=== PATIENT | female | born 1980 | race Caucasian/White ===

== ENCOUNTER 2017-01-30 11:39 | Emergency (ER) | payer OTHER ==
[2017-01-30 11:49] VITALS: BP 167/103; TEMP 98.1; BMI 37.4
[2017-01-30] MEDS ORDERED: SOLU-MEDROL 125 MG IM STA (12:14)
[2017-01-30] MEDS ORDERED: ROCEPHIN IM STA (12:14)
[2017-01-30] MEDS ORDERED: LIDOCAINE 1 % AMP 5 ML (SUTURES) IM STA (12:14)
--- NOTE | 2017-01-30 12:22 | ED.PDOC ---
General ED Provider: Dr. SHRAVAN ASH JR Chief Complaint: Bite Stated Complaint: Found tick attatched to rt back 3 days ago. Golf ball sized area of redness noted with dark center. Also c/o poison oak/ayesha "everywhere". Onset 2-3 days ago after took her dog outside to [place]. Has taken benadryl, calamine, et ibuprofen. Went to clinic. Would see pt at 1 pm, but pt states was too itchy to wait. [ End ]3 days 98.1 99 20 92% 167/103 02/09 Time Seen by Physician: 12:14 Mode of Arrival: Walk-In Information Source: Patient Exam Limitations: No limitations Primary Care Provider: DANIELLE COVARRUBIAS Nursing and Triage Documentation Reviewed and Agree: No Review of Systems - Review Of Systems Constitutional: Reports: Malaise Eyes: Reports: No symptoms Ears, Nose, Mouth, Throat: Reports: No symptoms Respiratory: Reports: No symptoms Cardiac: Reports: No symptoms GI: Reports: No symptoms : Reports: No symptoms Musculoskeletal: Reports: No symptoms Skin: Reports: Lesions, Lumps (right flank with 1cm edema erythema and 4mmsuperficial lac(consistent with avulsion from tick removal) left shoulde lesion healing multiple excotiated sites consistent with toxicodendron) Neurological: Reports: Anxiety, Other (itching unable to sleep) Endocrine: Reports: No symptoms Hematologic/Lymphatic: Reports: No symptoms All Other Systems: Other Past Medical History - Past Medical History Previously Healthy: Yes Endocrine: Reports: None Cardiovascular: Reports: None Respiratory: Reports: None Hematological: Reports: None Gastrointestinal: Reports: None Genitourinary: Reports: None Neuro/Psych: Reports: Seizure, Other (vertigo) Musculoskeletal: Reports: None Cancer: Reports: None Last Menstrual Period: 01/17 - Surgical History General Surgical History: Reports: Orthopedic (RIGHT colLar bone) - Family History Family History: Reports: Unknown - Social History Smoking Status: Current every day smoker, Light tobacco smoker Hx Substance Use: No Alcohol Screening: Occasionally Physical Exam - Physical Exam Appearance: Well-appearing, Obese Pain Distress: Moderate Eyes: HONG, EOMI, Conjunctiva clear ENT: Ears normal, Nose normal, Oropharynx normal Neck: Supple Respiratory: Airway patent, Breath sounds clear, Breath sounds equal, Respirations nonlabored Musculoskeletal: Normal strength, ROM intact, No edema, No calf tenderness Skin: Warm, Dry (note lesions) Neurological: Sensation intact, Motor intact, Reflexes intact, Cranial nerves intact, Alert, Oriented Psychiatric: Affect appropriate, Mood appropriate Critical Care Note - Critical Care Note Total Time (mins): 0 Course - Course Orders, Labs, Meds: Orders Category Date Time Status Ceftriaxone Sodium [Rocephin] MEDS 01/30/17 12:14 Discontinued 1 gm IM ONCE STA Lidocaine HCl/Pf [Lidocaine 1 % Amp 5 ml (Sutures)] MEDS 01/30/17 12:14 Discontinued 2.1 ml IM ONCE STA Methylprednisolone Sod Succ/Pf [Solu-Medrol 125 mg] MEDS 01/30/17 12:14 Discontinued 125 mg IM ONCE STA Medications Discontinued Medications Generic Name Dose Route Start Last Admin Trade Name Freq PRN Reason Stop Dose Admin Ceftriaxone Sodium 1 gm 01/30/17 12:14 01/30/17 12:30 Rocephin IM 01/30/17 12:15 1 gm ONCE STA Administration Lidocaine HCl 2.1 ml 01/30/17 12:14 01/30/17 12:30 Lidocaine 1 % Amp 5 Ml (Sutures) IM 01/30/17 12:15 2.1 ml ONCE STA Administration Methylprednisolone Sodium Succinate 125 mg 01/30/17 12:14 01/30/17 12:30 Solu-Medrol 125 Mg IM 01/30/17 12:15 125 mg ONCE STA Administration Vital Signs: Temp Pulse Resp BP Pulse Ox 01/30/17 11:41 98.1 F 99 H 20 167/103 H 92 L Departure - Departure Time of Disposition: 12:38 Disposition: HOME SELF-CARE Discharge Problem: Rhus dermatitis, Tick bite of back Instructions: Tick Bite (ED), Cold Compress or Soak (ED), Poison Ayesha (ED) Condition: Good Pt referred to PMD for follow-up: Yes Additional Instructions: continue Benadryl for itching and topical measures if helpful(may use other antihistamines claritin and yousif do not cause as much sedation as Benadryl solumedrol given if rash comes back may begin medrol dosepack [id number] one week PMD return if fever over 101.0 if rash spreading antibiotic for infection- doxycycline twice a day- may cause sun poisoning Prescriptions: Loratadine [Claritin] 10 mg PO DAILY PRN #30 tablet PRN Reason: Allergy Symptoms Methylprednisolone [Medrol Dosepak] 4 mg PO DIRECTED #1 pkg Allergies/Adverse Reactions: Allergies No Known Allergies Allergy (Verified 01/30/17 11:49) Home Medications: Ambulatory Orders Ibuprofen 800 mg PO PRN 06/26/16 Loratadine [Claritin] 10 mg PO DAILY PRN #30 tablet 01/30/17 Methylprednisolone [Medrol Dosepak] 4 mg PO DIRECTED #1 pkg 01/30/17
== END 2017-01-30 12:56 | disposition home or self-care (01) ==
LOC: ED 11:39
DX: S30.860A Insect bite (nonvenomous) of lower back and pelvis, initial encounter (principal); L23.7 Allergic contact dermatitis due to plants, except food; W57.XXXA Bitten or stung by nonvenomous insect and other nonvenomous arthropods, initial encounter
CPT/HCPCS: 96372; 99282